=== PATIENT | male | born 1965 | race African-American/Black ===

== ENCOUNTER 2017-02-13 11:30 | Emergency (ER) | payer BC ==
[2017-02-13 11:44] VITALS: BMI 32.5
--- NOTE | 2017-02-13 12:23 | PDOC ---
Attending Attestation - HPI HPI: 02/13/17 13:47 52 yr old male, with significant past medical history of anxiety, who presents to the emergency room seeking psychiatric assistance. The patient has been missing from work since Thursday, 5 days ago. He states that he has been trapped in his storage unit since Thursday. He didn't have his cell phone, but found a 15 year old phone in the unit and states that he sent Miller code to his friend to rescue him. He also notes that there was someone else living in the storage unit next to him with a TV and bed set up. He got in contact with his coworker Celso this morning to help him get out of the storage unit. The patient states that so many things have not gone his way over the past week and he might as well drive a car off the bridge. Dr. Franco spoke with Celso at [phone], who arrived at the storage unit this morning to help him. He states that there were multiple exits and the patient could have gotten out. Celso also states that the patient was taken out of work via ambulance on Thursday because of some kind of emotional distress <Ingrid Mccray - Last Filed: 02/13/17 13:47> - Resident Resident Name: Washington Knight - ED Attending Attestation I have performed the following: I have examined & evaluated the patient, The case was reviewed & discussed with the resident, I agree w/resident's findings & plan, Exceptions are as noted - Physicial Exam PE: GENERAL: Awake, alert, and fully oriented, in no acute distress HEAD: No signs of trauma EYES: PERRLA, EOMI, sclera anicteric, conjunctiva clear ENT: Auricles normal inspection, hearing grossly normal, nares patent, oropharynx clear without exudates. Moist mucosa NECK: Normal ROM, supple, no lymphadenopathy, JVD, or masses LUNGS: Breath sounds equal, clear to auscultation bilaterally. No wheezes, and no crackles HEART: Regular rate and rhythm, normal S1 and S2, no murmurs, rubs or gallops ABDOMEN: Soft, nontender, normoactive bowel sounds. No guarding, no rebound. No masses EXTREMITIES: Normal range of motion, no edema. No clubbing or cyanosis. No cords , erythema, or tenderness NEUROLOGICAL: Cranial nerves II through XII grossly intact. Normal speech, normal gait SKIN: Warm, Dry, normal turgor, no rashes or lesions noted. - Medical Decision Making Case d/w Ms Anderson, criminal justice lawyer. Patient agrees to voluntary commitment. Prior history of psychotic break as a child, and today he appears to have some delusions as well as expressing SI. Endorsed to Dr. Pritchard at 7pm shift change. I have just talked with patient and his mother, who do not want to wait for a bed for placement- they want him to go home, unclear when they would go back to a hospital. In light of his expressing SI, if he attempts to leave AMA, will have to make this an involuntary commitment. I have signed 2PC in case it is necessary. Awaiting callback from case management for placement. <Coby Franco - Last Filed: 02/14/17 17:32>
--- NOTE | 2017-02-13 12:51 | PDOC ---
History of Present Illness - General Chief Complaint: Psychiatric Stated Complaint: PANIC ATTACK Time Seen by Provider: 02/13/17 11:58 History Source: Patient, Family Exam Limitations: No Limitations - History of Present Illness Initial Comments: 02/13/17 12:36 The patient is a 52M with a PMH of anxiety who presents to the ED for psychiatric workup. The patient states that Thursday (4 days ago) he was at work and had an anxiety attack where he blacked out. 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 The patient states that he was worked up for anxiety and was left in a hallway when he heard his name called over the speakerphone and he could not find his room and he left. He then states that he was in his storage unit Thursday and was locked inside of it until Thursday where his union coworkers helped him out. Then they took him to [address] [place] [address] [facility] and they told him their beds were full. He decided to come to [facility] because this is closer to his mom's house. The mother states that the patient eloped from [facility] on Thursday and that she thought he was with his girlfriend from Thursday to Thursday. Past History - Past Medical History Allergies/Adverse Reactions: Allergies Allergy/AdvReac Type Severity Reaction Status Date / Time No Known Allergies Allergy Verified 02/13/17 11:43 Home Medications: Ambulatory Orders Olanzapine [Zyprexa -] 7.5 mg PO DAILY #30 tablet 02/13/17 Psychiatric Problems: Yes (anxiety, depression) - Suicide/Smoking/Psychosocial Hx Smoking History: Never smoked Have you smoked in the past 12 months: No Information on smoking cessation initiated: No Hx Alcohol Use: No Drug/Substance Use Hx: No Substance Use Type: None Review of Systems - Review of Systems Able to Perform ROS?: Yes Is the patient limited Solomon Islander proficient: No Constitutional: No: Chills, Fever HEENTM: No: Blurred Vision Respiratory: No: Cough, Shortness of Breath Cardiac (ROS): No: Chest Pain ABD/GI: No: Constipated, Diarrhea, Nausea, Vomiting : No: Burning, Dysuria, Discharge Musculoskeletal: No: Back Pain, Neck Pain Integumentary: No: Rash Neurological: No: Headache, Numbness, Tingling, Weakness Psychiatric: Yes: Stressors, Other (suicidal, no concrete plan) *Physical Exam - Vital Signs Last Vital Signs Temp Pulse Resp BP Pulse Ox 97.9 F 76 18 127/74 99 02/13/17 11:33 02/13/17 11:33 02/13/17 11:33 02/13/17 11:33 02/13/17 11:33 - Physical Exam General Appearance: Yes: Nourished, Appropriately Dressed. No: Apparent Distress, Alcohol on Breath, Intoxicated HEENT: positive: Normal Voice, Hearing Grossly Normal Respiratory/Chest: positive: Lungs Clear, Normal Breath Sounds. negative: Chest Tender, Respiratory Distress, Accessory Muscle Use, Crackles, Rales, Rhonchi, Stridor, Wheezing Cardiovascular: positive: Regular Rhythm, Regular Rate, S1, S2. negative: Diastolic Murmur, Systolic Murmur Gastrointestinal/Abdominal: positive: Flat, Soft. negative: Tender, Distended, Guarding, Rebound, Tenderness Musculoskeletal: negative: CVA Tenderness, CVA Tenderness (R), CVA Tenderness (L ) Extremity: negative: Tender, Swelling, Calf Tenderness Integumentary: positive: Dry, Warm. negative: Cyanotic, Cold, Clammy Neurologic: positive: Alert, Depressed Affect Medical Decision Making - Medical Decision Making 02/13/17 13:07 The patient is a 52M with a PMH of anxiety who presents to the ED with suicidal ideations. The patient does not have a concrete plan but is suicidal. I spoke with Dr. Delvalle, psych, who wants the patient to have Ativan and reassessed. I do not agree with this plan as the patient seems like he is having an episode of psychosis and is suicidal. I called [facility] to see if he did go there and they say that he did. Other parts of his story are harder to confirm but do not add up. I will reassess this patient and discuss with my attending. For now he will have a 1to1 sitter and all of his personal items searched and placed by security. 02/13/17 16:09 I have spoken with Dr. Delvalle again and he said his RECEIVING DOCK CHECKER will see the patient between 4 and 6pm. 02/13/17 18:29 notcher believes the patient is going through a psychotic break and will require inpatient admission. I have called [facility] inpatient [facility] and pending call back. 02/13/17 19:06 [facility] is full. Mother and patient want to leave with home medications so he can sleep and want to see a pschiatrist thursday. I expressed concern about this idea. My attending and I discussed at length the patient's options. They have agreed to wait until they can see the case coordinator. Patient signed out to night team. *DC/Admit/Observation/Transfer Diagnosis at time of Disposition: Depression Qualifiers: Depression Type: major depressive disorder Major depression recurrence: single episode Active/Remission status: currently active Major depression episode severity: moderate Qualified Code(s): F32.1 - Major depressive disorder, single episode, moderate - Discharge Dispostion Disposition: HOME Condition at time of disposition: Unchanged/Unknown - Prescriptions Prescriptions: Olanzapine [Zyprexa -] 7.5 mg PO DAILY #30 tablet - Referrals Referrals: Zak Bundy MD [Primary Care Provider] - - Patient Instructions Printed Discharge Instructions: DI for Depression -- Adult Additional Instructions: Mr Zurita- I know this is difficult. Please go to the closest ER should you start feeling suicidal, or, even better, call 911 for help. You could also call a suicide prevention hotline. Keep your appointment on Thursday with Shannan Anderson. Start the Zyprexa as soon as you can. Best- Dr. George Pritchard
[2017-02-13 17:39] LABS: URINE MARIJUANA THC NEGATIVE ng/ml (CUTOFF=50)
--- NOTE | 2017-02-13 18:33 | CON.PSY ---
Psychiatry Consult Chief Complaint: Asked to see this patient, a 52 year old male for suicidal ideation and panic attacks. History of Present Problem: Patient was seen and examined. Hx obtained from both patient and mother who gave collateral info. Medical chart reviewed, labs reviewed, Collaborated with ER physiian. Patient has a a psychiatric history beginning at around the age of 13 when his grandmother . He was then hospitalized at [facility] and also had a short stay at [facility], He gave a hx of taking psychiatric meds including prolixin, lithium thorazine and others that he cannot remember. Mr. Zurita reports that he was doing well in his usual state of mental health, working at [employer] when on Thursday his fiance ended their relationship. Also he had what he described as a panic attack while driving when his heart starts racing and he had to stop the car and pull aside. Although, he has never been hospitalized since the age of 13, he does give a history of frequent panic attacks and not sleeping for days. Mother also reports that he has not been sleeping x several days as well. He denies psychotic symptoms or manic symptoms. Patient states tht he does not want to be in this world any more and that " I feel like driving the car and leaving this world!" He has at this time an increased in psychosocial issues: recent break up, work place problems and according to him, he has been living in a storage room and at times in his car. Patient has a family hx of bipolar disorder. Symptoms: reports: Depressed Mood - Previous Psychiatric Treatment Outpatient: None Inpatient: None - Allergies Allergies: Allergies Allergy/AdvReac Type Severity Reaction Status Date / Time No Known Allergies Allergy Verified 02/13/17 11:43 - Current Living Status Usual Living Arrangement: Other (see HPI) - Current Mental Status Evaluation Appearance: Other (clean in a hospital gown) Attitude: Guarded - Affect Affect: Constrictive Appropriateness: Appropriate to Content - Mood Mood: Depressed - Speech/Language Expressive: Coherent Receptive: Age Appropriate Comprehension of Spoken Words - Psychomotor Activity Psychomotor Activity: Slowed - Thought Process Thought Process: Intact - Thought Content Hallucinations: Absent Delusions: Absent - Self Perception Self Perception: No Impairment - Cognition Attention: Diminished Orientation: Time, Person, Place Memory, Immediate Recall: Impaired Memory, Remote: Impaired - Abstraction Judgement: Moderately Impaired - Insight Insight: Impaired - Suicidal Ideation Suicidal Ideation: Yes (crashing his vehicle) - Homicidal Ideation Homicidal Ideation: No Assessment/Plan Rule out Bipolar Coexisting with panic attacks/anxiety Recommendation In patient hospitalization for suicidal ideation. Also he has not slept for many days start zyprexa 7.5 mgs tonight
[2017-02-13 19:53] VITALS: BP 138/77; PULSE 76; TEMP 98
--- NOTE | 2017-02-13 19:59 | PDOC ---
*Physical Exam - Vital Signs Last Vital Signs Temp Pulse Resp BP Pulse Ox 98.0 F 76 18 138/77 99 02/13/17 19:53 02/13/17 19:53 02/13/17 19:53 02/13/17 19:53 02/13/17 19:53 <Yash Valle - Last Filed: 02/13/17 20:27> - Vital Signs Last Vital Signs Temp Pulse Resp BP Pulse Ox 98.0 F 76 18 138/77 99 02/13/17 19:53 02/13/17 19:53 02/13/17 19:53 02/13/17 19:53 02/13/17 19:53 <George Pritchard - Last Filed: 02/13/17 21:09> ED Treatment Course - ADDITIONAL ORDERS Additional order review: Laboratory Results 02/13/17 16:49 Opiates Screen Negative Methadone Screen Negative Barbiturate Screen Negative Phencyclidine Screen Negative Ur Amphetamines Screen Negative MDMA (Ecstasy) Screen Negative Benzodiazepines Screen Negative Cocaine Screen Negative U Marijuana (THC) Screen Negative <Yash Valle - Last Filed: 02/13/17 20:27> - ADDITIONAL ORDERS Additional order review: Laboratory Results 02/13/17 16:49 Opiates Screen Negative Methadone Screen Negative Barbiturate Screen Negative Phencyclidine Screen Negative Ur Amphetamines Screen Negative MDMA (Ecstasy) Screen Negative Benzodiazepines Screen Negative Cocaine Screen Negative U Marijuana (THC) Screen Negative <George Pritchard - Last Filed: 02/13/17 21:09> Medical Decision Making - Medical Decision Making 02/13/17 19:27 Pending placement for psychiatric disposition. <Yash Valle - Last Filed: 02/13/17 20:27> - Medical Decision Making 02/13/17 20:59 Patient seen a second time by Psychiatry, Safety Plan in Place, And Follow up secured for Thursday. Patient invited to return to us for any situation, at any time <George Pritchard - Last Filed: 02/13/17 21:09> *DC/Admit/Observation/Transfer - Attestations Scribe Attestion: 02/13/17 20:28 Documentation prepared by Yash Valle, acting as medical appointment scheduler for George Pritchard DO. <Yash Valle - Last Filed: 02/13/17 20:27> - Discharge Dispostion Admit: No <George Pritchard - Last Filed: 02/13/17 21:09> Diagnosis at time of Disposition: Depression Qualifiers: Depression Type: major depressive disorder Major depression recurrence: single episode Active/Remission status: currently active Major depression episode severity: moderate Qualified Code(s): F32.1 - Major depressive disorder, single episode, moderate - Discharge Dispostion Disposition: HOME Condition at time of disposition: Unchanged/Unknown - Prescriptions Prescriptions: Olanzapine [Zyprexa -] 7.5 mg PO DAILY #30 tablet - Referrals Referrals: Zak Bundy MD [Primary Care Provider] - - Patient Instructions Printed Discharge Instructions: DI for Depression -- Adult Additional Instructions: Mr Zurita- I know this is difficult. Please go to the closest ER should you start feeling suicidal, or, even better, call 911 for help. You could also call a suicide prevention hotline. Keep your appointment on Thursday with Shannan Anderson. Start the Zyprexa as soon as you can. Best- Dr. George Pritchard
[2017-02-13] MEDS ORDERED: LORazepam 1 MG TABLET PO ONE (21:01)
[2017-02-13] MEDS ORDERED: LORazepam 0.5 MG TABLET ONE (21:11)
== END 2017-02-13 21:15 | disposition home or self-care (01) ==
LOC: JER 11:30
DX: F32.1 Major depressive disorder, single episode, moderate (principal); F41.8 Other specified anxiety disorders
CPT/HCPCS: 80307; 99283-25

== ENCOUNTER 2019-02-06 04:07 | Inpatient (IN) | payer BC | END 2019-02-06 16:52 | disposition home or self-care (01) | LOC: JER 04:07 → JERBED 12:32 → J4S 14:51 ==